=== PATIENT | female | born 1975 ===

== ENCOUNTER 2025-02-14 06:28 | Emergency (ER) | payer OTHER, SELFPAY ==
[2025-02-14 06:35] VITALS: BP 138/77; PULSE 87; RESP 16; TEMP 36.6; O2SAT 98; BMI 28.3
--- NOTE | 2025-02-14 06:44 | ECG_ITS ---
Test Reason : TIA Blood Pressure : */* mmHG Vent. Rate : 73 BPM Atrial Rate : 73 BPM P-R Int : 132 ms QRS Dur : 84 ms QT Int : 406 ms P-R-T Axes : 45 46 39 degrees QTcB Int : 447 ms Normal sinus rhythm Normal ECG No previous ECGs available Referred By: Thomas Pro Electronically Signed By: Sanjeev Bruno
[2025-02-14 06:56] VITALS: BP 138/77; PULSE 87; RESP 16; TEMP 36.6; O2SAT 98
[2025-02-14 07:06] LABS: MANUAL DIFF FLAG NO
[2025-02-14 07:08] LABS: Basophils Percent Auto 0.3 % (0-2); Eosinophils Absolute Auto 0.1 X10*3/uL (0.0-0.4); Eosinophils Percent Auto 0.9 % (0-4); Hematocrit 35.1 % (37.0-47.0); Hemoglobin 11.7 g/dl (12.0-16.0); Imm Gran Abs Auto 0.05 X10*3/uL (0.00-0.03); Imm Gran Pct Auto 0.5 % (0.0-0.4); Lymphocytes Absolute Auto 1.6 X10*3/uL (1.2-4.9); Lymphocytes Percent Auto 15.1 % (20-40); Mean Corpuscular HGB Conc 33.3 g/dl (31.0-35.0); Mean Corpuscular Hemoglobin 29.1 pg (27.0-33.0); Mean Corpuscular Volume 87.3 fL (80.0-98.0); Mean Platelet Volume 10.5 fL (9.4-12.3); Monocytes Absolute Auto 0.9 X10*3/uL (0.1-1.2); Monocytes Percent Auto 8.3 % (2-11); Neutrophils Absolute Auto 7.8 x10*3/uL (2.0-8.3); Neutrophils Percent Auto 74.9 % (45-73); Platelet Count 214 X10*3/uL (160-400); Red Blood Count 4.02 X10*6/uL (4.20-5.50); White Blood Count 10.4 X10*3/uL (4.8-10.8)
--- NOTE | 2025-02-14 07:09 | ED.GENADULT ---
HPI - General Adult General Chief complaint: General Medical Stated complaint: left side numbness, brain fog, tingling mouth Time Seen by Provider: 02/14/25 07:09 Source: patient Mode of arrival: ambulatory Limitations: no limitations History of Present Illness ED Provider: HPI narrative: 49-year-old woman with history of hypertension, hyperlipidemia, 5 days ago was at [facility] with a diagnosis of TIA, she states she was driving car when she started feeling not herself and was having numbness and tingling in her body more on the left side both arms and legs, although over, EMS was called she was taken to [facility] head CT and CTA and then admitted for MRI discharge with medication change since, and presumptive diagnosis of a TIA, few days later and she was having the same symptoms and she went to [facility] at that point she had a noncontrast CT that was negative, and today 530 in the morning she woke up and she was having perioral tingling, and tingling in both of her arms and legs, she was having palpitations and chest tightness as well. She is taking her medications regular basis and she quit smoking. No drug use. She reports regular life stressors. Related Data Previous Rx's ?Medication ?Instructions ?Recorded hydroxyzine HCl 25 mg tablet 25 mg PO TID PRN anxiety #10 tabs 02/14/25 Allergies Allergy/AdvReac Type Severity Reaction Status Date / Time No Known Allergies Allergy Verified 02/14/25 06:46 Review of Systems Constitutional: Constitutional: Reports as per [facility] Social History Social History Smoked in Last 30 Days: No Use of substances other than those prescribed or required for medical reasons: No Advance Directives: No Advance Directives Information Provided: No Do you have a plan to hurt others: No Plan Patient : No Physical Exam ED Vital Signs: Vital Signs - 24 hr 02/14/25 06:35 02/14/25 06:56 02/14/25 07:20 Temperature 97.9 F 97.9 F 97.8 F Pulse Rate 87 87 69 Respiratory Rate 16 16 18 Blood Pressure 138/77 138/77 145/65 H Pulse Oximetry 98 98 99 Oxygen Delivery Method Room Air Room Air Room Air 02/14/25 08:01 Temperature 97.7 F Pulse Rate 68 Respiratory Rate 18 Blood Pressure 152/73 H Pulse Oximetry 99 Oxygen Delivery Method Room Air BMI result Body Mass Index 28.3 Const Other: Gen: ?Overall well-appearing patient HEENT: PERRLA, EOMI, MMM, Neck: Supple, no LAD CV: RRR, no obvious murmurs appreciated Resp: ?No wheezing rales rhonchi no stridor moving air well Abd: ?Bowel sounds are present, no tenderness no rebound no rigidity MSK: FROM, strength 5/5 all extremities Skin: Warm, dry, intact, Neuro: ?Alert and oriented x3, moving upper and lower extremities symmetrically, no obvious facial asymmetry noted, pupils reactive, no dysmetria upper or lower extremities no sensory deficits Psych; pleasant, no SI or HI Medications Administered Discontinued Medications Generic Name Dose Route Start Last Admin Trade Name Jenise PRN Reason Stop Dose Admin Diazepam 2 mg 02/14/25 07:44 02/14/25 07:59 Diazepam 2 Mg Tablet PO 02/14/25 07:45 2 mg ONCE ONE Administration Medical Decision Making Medical Decision Making [facility] Narrative: Physical examination without any neuro deficits, this is a 3rd visit in 1 week for what to me sounds like fairly classic presentation of a panic attack such as perioral numbness and tingling in her hands and feet, and I have discussed this with the patient and 1 of the reassuring factors is that she has already had CT CTA and a brain MRI, she has not had any neurologic deficits and they found some incidental findings that she was not really sure about either 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 CT without contrast was ordered prior to my arrival I have canceled it after discussing with the patient, I will give her a small dose of Valium re-evaluate her and anticipate discharge. I reviewed patient's discharge paperwork from [facility] 09:19 patient re-evaluated, she feels much calmer, I have discussed with her return precautions see my discharge instructions, she feels comfortable with the plan, she is aware she has anemia Differential Diagnosis Differential Diagnoses: The differential diagnosis associated with the presentation includes ACS, dysrhythmia, electrolyte derangements, panic attack, migraine headaches, stroke Admission/Observation Consideration of admission/observation: Escalation of care including admission/observation considered Lab Data [facility] Lab Attestation statement: I reviewed the patient's lab results. 02/14/25 06:58 02/14/25 06:58 Labs: Lab Results 02/14/25 Range/Units 06:58 WBC 10.4 (4.8-10.8) X10*3/uL RBC 4.02 L (4.20-5.50) X10*6/uL Hgb 11.7 L (12.0-16.0) g/dl Hct 35.1 L (37.0-47.0) % MCV 87.3 (80.0-98.0) fL MCH 29.1 (27.0-33.0) pg MCHC 33.3 (31.0-35.0) g/dl RDW 14.0 (11.0-16.0) % Plt Count 214 (160-400) X10*3/uL MPV 10.5 (9.4-12.3) fL Immature Gran % (Auto) 0.5 H (0.0-0.4) % Neut % (Auto) 74.9 H (45-73) % Lymph % (Auto) 15.1 L (20-40) % Hamlin % (Auto) 8.3 (2-11) % Eos % (Auto) 0.9 (0-4) % Baso % (Auto) 0.3 (0-2) % Lymph # (Auto) 1.6 (1.2-4.9) X10*3/uL Hamlin # (Auto) 0.9 (0.1-1.2) X10*3/uL Eos # (Auto) 0.1 (0.0-0.4) X10*3/uL Baso # (Auto) 0.0 (0.0-0.2) X10*3/uL Abs Immat Gran (auto) 0.05 H (0.00-0.03) X10*3/uL Absolute Neuts (auto) 7.8 (2.0-8.3) x10*3/uL Absolute Nucleated RBC 0.000 (0.0-0.012) X10*3/uL Nucleated RBC % (auto) 0.0 (0.0-0.2) /100WBC PT 11.5 (10.9-12.4) SEC INR 1.0 (0.9-1.1) APTT 32.1 (26.0-36.8) SEC Sodium 138 (135-145) mmol/L Potassium 3.9 (3.3-5.1) mmol/L Chloride 109 H (96-108) mmol/L Carbon Dioxide 20 L (22-29) mmol/L Anion Gap 13 (12-20) BUN 23 H (9-16) mg/dL Creatinine 0.94 (0.5-1.4) mg/dL Estim Creat Clear Calc 65.0 Estimated GFR > 60 Random Glucose 105 (60-115) mg/dL Calcium 9.1 (8.4-10.2) mg/dL Magnesium 2.0 (1.6-2.6) mg/dL Total Bilirubin 0.5 (0.0-1.0) mg/dL AST 29 (5-31) U/L ALT 31 (0-31) U/L Alkaline Phosphatase 78 (39-117) U/L Total Protein 7.6 (6.5-8.0) g/dL Albumin 4.4 (3.5-5.0) g/dL Independent Interpretation I performed an independent interpretation of an: EKG (73 beats per minute otherwise normal ECG without dysrhythmia, AV shannon blocks or ST-T changes to suspect underlying ACS, my independent interpretation) Discharge Plan Discharge Clinical Impression: Facial numbness, Left arm numbness, Anxiety reaction Patient Disposition: Home, Self-Care Additional Instructions: As discussed, your blood work has been reassuring, so was EKG, you have anemia the you are aware of, your blood work shows that you should probably drank a little bit more fluids as well, but nothing significantly abnormal, also I did not obtain any imaging of your brain today as you have had 2 prior [address]s 1 of those was with IV contrast, you also had a brain MRI, you also taking medications for blood pressure, cholesterol on Plavix continue with these, great job and not smoking, I have discussed limiting salt intake which will help with the blood pressure, making sure you walk or exercise but that will help you with buildup of stress in life, I am going to recommend hydroxyzine you can use 25 mg as needed if you have not these symptoms, it can make you drowsy so make sure he is not driving, control your breathing, as I discussed I suspect you are having panic disorder, however if you have not any other issues and you concern never hesitate to come back to the ER for evaluation, and I have discussed why I did not feel that there is a need for recurrent CTs in your case. I would like to have you follow up with the primary care physician, you may need medications for panic attack prevention, possibly therapy may help, but ultimately if something does not feel right to you feel free to just come back to the ER. Prescriptions: New hydroxyzine HCl 25 mg tablet 25 mg PO TID PRN (Reason: anxiety) Qty: 10 0RF Referrals: Karlie Coronel MD [Primary Care Provider, Internal Medicine] - 2 weeks Referral Note: In the past week patient has had 3 ER visits, I believe she has panic attacks, has had MRI, CTs, other unremarkable blood work and she may need to be on preventative medication Print Language: Serbian
[2025-02-14 07:20] VITALS: BP 145/65; PULSE 69; RESP 18; TEMP 36.6; O2SAT 99
--- NOTE | 2025-02-14 07:21 | PC.NURSE ---
Pt is axox3. skin pwd, NSR on monitor. unlabored resp. reporting LUE numbness. does have slight weakness noted in hand grasp on left. otherwise no neuro deficits. On plavix, NKI. awaits records from [facility] and [facility].
[2025-02-14 07:22] LABS: Prothrombin Time 11.5 SEC (10.9-12.4)
[2025-02-14 07:24] LABS: Alanine Aminotransferase 31 U/L (0-31); Albumin Level 4.4 g/dL (3.5-5.0); Alkaline Phosphatase 78 U/L (39-117); Anion Gap 13 (12-20); Aspartate Amino Transferase 29 U/L (5-31); Bilirubin Total 0.5 mg/dL (0.0-1.0); Blood Urea Nitrogen 23 mg/dL (9-16); Calcium 9.1 mg/dL (8.4-10.2); Carbon Dioxide 20 mmol/L (22-29); Chloride 109 mmol/L (96-108); Estimated Glomerular Filt Rate > 60; Glucose Random 105 mg/dL (60-115); Partial Thromboplastin Time 32.1 SEC (26.0-36.8); Potassium 3.9 mmol/L (3.3-5.1); Sodium 138 mmol/L (135-145); Total Protein 7.6 g/dL (6.5-8.0)
[2025-02-14] MEDS: diazePAM 2 MG TABLET PO (07:59)
[2025-02-14 08:01] VITALS: BP 152/73; PULSE 68; RESP 18; TEMP 36.5; O2SAT 99
--- NOTE | 2025-02-14 08:01 | PC.NURSE ---
Pt has equal strength in BUE. No neuro deficits.
[2025-02-14 09:35] VITALS: BP 115/62; PULSE 65; RESP 18; TEMP 36.5; O2SAT 99
== END 2025-02-14 09:37 | disposition home or self-care (01) ==
PROVIDERS: Internal Medicine; Emergency Provider Emergency Medicine; PCP Internal Medicine
DX: R20.0 Anesthesia of skin (principal); F41.1 Generalized anxiety disorder; Z79.899 Other long term (current) drug therapy; Z87.891 Personal history of nicotine dependence
CPT/HCPCS: 36415; 80053; 83735; 85025; 85610; 85730; 93005; 99283; 99285

== ENCOUNTER → 2025-02-14 06:44 | Outpatient (BNV) | payer OTHER, SELFPAY | PROVIDERS: Emergency Provider Emergency Medicine; PCP Internal Medicine; Visit Provider Internal Medicine Cardiovascular Disease | DX: G45.9 Transient cerebral ischemic attack, unspecified (principal) | CPT/HCPCS: 93010 ==